=== PATIENT | male | born 1960 | race African-American/Black ===

== ENCOUNTER 2024-08-14 13:14 | Emergency (ER) | payer BC ==
[~2024-08-14] VITALS: Ht 175.3 cm; Wt 81.0 kg
[2024-08-14] VITALS (15 sets, daily range): BP systolic 132–171; BP diastolic 81–113
[2024-08-14] MEDS ORDERED: SODIUM CHLORIDE 0.9% 1,000 ML IV ONE (13:30)
[2024-08-14 14:25] LABS: BASO% 0.2 % (0-3); HEMATOCRIT 42.2 % (39.0-50.0); HEMOGLOBIN 13.7 g/dl (14.0-18.0); IMMATURE GRANULOCYTES 0.2 % (0.0-5.0); LYMPH% 10.7 % (15-41); MEAN CELL VOLUME 84.4 fL CALC (80.0-100.0); MEAN CORPUSCULAR HGB 27.4 pG CALC (26.0-32.0); MEAN CORPUSCULAR HGB CONC 32.5 g/dL CAL (32.0-36.0); NEUT# 9.95 thou/uL (1.82-7.42); NEUT% 85.9 % (42-76); RED CELL DISTRI WIDTH 12.8 % (11.5-15.5)
[2024-08-14 14:38] LABS: ALBUMIN 4.1 g/dL (3.2-5.0); CREATININE 1.3 mg/dL (0.7-1.3); POTASSIUM 3.8 mmol/l (3.5-5.1); TOTAL PROTEIN 7.4 g/dL (6.3-8.2)
[2024-08-14 14:42] LABS: BILIRUBIN, TOTAL 2.4 mg/dL (0.2-1.3)
[2024-08-14] MEDS ORDERED: DOXYCYCLINE HYCLATE 100 MG/CAP PO ONE (16:00)
[2024-08-14] MEDS ORDERED: GUAIFENESIN 200 MG/10 ML UDC PO ONE (16:05)
[2024-08-14] MEDS ORDERED: AZITHROMYCIN500 MG PO ×2 (16:56→17:43)
[2024-08-14] MEDS ORDERED: BENZONATATE200 MG PO ×2 (16:56→17:43)
[2024-08-14] MEDS ORDERED: VIBRAMYCIN100 M2 PO ×2 (16:56→17:43)
== END 2024-08-14 17:10 | disposition home or self-care (01) | DRG 195 ==
LOC: ED 13:14
PROVIDERS: Nurse Practitioner
DX: J18.9 Pneumonia, unspecified organism (principal); R19.7 Diarrhea, unspecified; Z20.822 Contact with and (suspected) exposure to COVID-19
CPT/HCPCS: Q9967

== ENCOUNTER 2024-11-08 17:31 | Emergency (ER) | payer BC ==
[~2024-11-08] VITALS: Ht 175.3 cm; Wt 79.4 kg
[~2024-11-08 17:31] MED LIST: AZITHROMYCIN500 MG PO; BENZONATATE200 MG PO; VIBRAMYCIN100 M2 PO
[2024-11-08 17:37] VITALS: BP 167/117
[2024-11-08 17:45] VITALS: BP 160/110
[2024-11-08] MEDS ORDERED: IPRATROPIUM-Albuterol 0.5MG-2.5MG/3 ML NEB ONE (17:50)
[2024-11-08 18:00] VITALS: BP 162/118
[2024-11-08 18:02] LABS: BASO% 0.6 % (0-3); EOS% 3.1 % (0-8); IMMATURE GRANULOCYTES 0.2 % (0.0-5.0); LYMPH% 51.2 % (15-41); MEAN CELL VOLUME 84.3 fL CALC (80.0-100.0); MEAN CORPUSCULAR HGB 27.2 pG CALC (26.0-32.0); MEAN CORPUSCULAR HGB CONC 32.3 g/dL CAL (32.0-36.0); NEUT# 1.85 thou/uL (1.82-7.42); NEUT% 37.9 % (42-76); RED BLOOD COUNT 5.85 mill/uL (4.70-6.10)
[2024-11-08 18:03] LABS: HEMATOCRIT 49.3 % (39.0-50.0); HEMOGLOBIN 15.9 g/dl (14.0-18.0)
[2024-11-08 18:13] LABS: ALBUMIN 4.6 g/dL (3.2-5.0); BILIRUBIN, TOTAL 1.7 mg/dL (0.2-1.3); CREATININE 1.2 mg/dL (0.7-1.3); TOTAL PROTEIN 7.9 g/dL (6.3-8.2)
[2024-11-08] MEDS ORDERED: methylPREDNISolone SODIUM SUCC 125 MG/2 ML SDV IV ONE (19:25)
[2024-11-08] MEDS ORDERED: FUROSEMIDE 40 MG/4 ML SDV IV ONE (19:25)
[2024-11-08 19:57] LABS: URINE BILIRUBIN - DIPSTICK Negative (NEGATIVE); URINE BLOOD DIPSTICK Negative (NEGATIVE); URINE GLUCOSE - DIPSTICK Negative (NEGATIVE); URINE KETONE Negative (NEGATIVE); URINE LEUK ESTERASE Negative (NEGATIVE); URINE NITRITE - DIPSTICK Negative (Negative); URINE PH 5.5 (4.5-8.0); URINE PROTEIN - DIPSTICK 100 mg/dL (NEG-TRACE); URINE SPECIFIC GRAVITY 1.015; URINE UROBILINOGEN - DIPSTICK 0.2 E.U./dL (0.2)
[2024-11-08 19:58] LABS: URINE COLOR Yellow
[2024-11-08 20:04] LABS: URINE RBC 0-2 RBC/hpf (0-5); URINE WBC 0-2 WBC/hpf (0-5)
[2024-11-08 20:05] LABS: URINE SQUAMOUS EPITHELIAL CELL FEW EPI/hpf (0-FEW)
[2024-11-08] MEDS ORDERED: LOPRESSOR25 M1 PO (20:24)
[2024-11-08] MEDS ORDERED: LASIX20 MG PO (20:24)
[2024-11-08] MEDS ORDERED: POT CHLORIDE20 ME2 PO (20:24)
[2024-11-08 20:46] VITALS: BP 162/118
== END 2024-11-08 20:46 | disposition home or self-care (01) | DRG 188 ==
LOC: ED 17:31
PROVIDERS: Family Medicine
DX: J90 Pleural effusion, not elsewhere classified (principal); I10 Essential (primary) hypertension
CPT/HCPCS: J1940; Q9967